=== PATIENT | female | born 1960 | race Native Hawaiian/Other Pacific Islander ===

== ENCOUNTER 2025-06-09 17:35 | Emergency (ER) | payer OTHER ==
[~2025-06-09] VITALS: Ht 157.5 cm; Wt 47.6 kg
--- NOTE | 2025-06-09 17:44 | ERN ---
ED Note History of Present Illness Stated Complaint: RIGHT KNEE PAIN Chief Complaint: Knee Injury/Swelling Time Seen by MD: 17:37 Dictation: PATIENT IS A 64-YEAR-OLD FEMALE HERE WITH COMPLAINTS OF CHRONIC RIGHT KNEE PAIN WITH POPPING TO THE POSTERIOR KNEE FOR MORE THAN A MONTH. SHE STATES SHE HAS BEEN USING A BRACE WITH A AMBULATION AND THAT IT HELPS HOWEVER IT HAS GOTTEN TO THE POINT NOW WHERE SHE IS HAVING TROUBLE WITH AMBULATION DUE TO PAIN. [facility] NE[facility]OVASCULAR AND CMS INTACT TO RIGHT LEG. LAXITY NOTED TO KNEE WITH THE EXAM. Allergies: Coded Allergies: Penicillins (Unverified Allergy, Unknown, 06/09/25) amoxicillin (Unverified Allergy, Unknown, 06/09/25) azithromycin (Unverified Allergy, Unknown, 06/09/25) clavulanic acid (Unverified Allergy, Unknown, 06/09/25) Past Medical History History: Not Applicable RN Note Reviewed/Agreed w/PFSH: Yes Review of System Dictation CONSTITUTIONAL: NEGATIVE EXCEPT FOR HPI HEAD/FACE: NEGATIVE EXCEPT FOR HPI EENT: NEGATIVE EXCEPT FOR HPI RESPIRATORY: NEGATIVE EXCEPT FOR HPI GASTROINTESTINAL/ABDOMINAL: NEGATIVE EXCEPT FOR HPI GENITOURINARY: NEGATIVE EXCEPT FOR HPI MUSCULOSKELETAL: NEGATIVE EXCEPT FOR HPI RIGHT KNEE PAIN INTEGUMENTARY: NEGATIVE EXCEPT FOR HPI NEUROLOGICAL/PSYCH: NEGATIVE EXCEPT FOR HPI HEMATOLOGIC/LYMPHATIC: NEGATIVE EXCEPT FOR HPI ALL SYSTEMS NEGATIVE, EXCEPT NOTED ABOVE. 13 POINT REVIEW OF SYSTEMS ASSESSED AND ALL NEGATIVE EXCEPT FOR ABOVE. Initial Vital Sign VS Vital Signs Date Time Temp Pulse Resp B/P (MAP) Pulse Ox O2 Delivery O2 Flow Rate FiO2 06/09/25 17:36 98.2 64 17 138/83 100 Room Air 0 06/09/25 17:45 21 Physical Exam Dictation VITAL SIGNS REVIEWED GENERAL APPEARANCE: ALERT, ORIENTED X 3, MODERATE ACUTE DISTRESS, WELL DEVELOPED, NOURISHED. HEAD AND FACE: NON-TRAUMATIC. EYES: PERRL, PINK CONJUNCTIVAS, EYELID NO TRAUMA, ANTERIOR CHAMBER WITH ARCUS SENILIS. EARS: PINNAS INTACT AND NO SIGNS OF TRAUMA OR ERYTHEMA EAR CANALS CLEAR AND NO DISCHARGE TM NO ERYTHEMA NOSE: NO DISCHARGE, NO BLEEDING. OROPHARYNX: MOUTH NORMAL, TONGUE PINK, PHARYNX CLEAR,NO ERYTHEMA, TONSILS NO EXUDATES, NO ABSCESSES NOTED, MUCOUS MEMBRANE MOIST NECK: SUPPLE, NON-TENDER, NO THYROMEGALY, NO MASSES, NO JVD, NO BRUITS BREAST:DEFERRED CHEST:NO TENDERNESS, NO CREPITUS, NO PARADOXICAL MOVEMENT, NO RETRACTIONS LUNGS:CLEAR, WELL-VENTILATED, SYMMETRIC, NO RALES, NO WHEEZING, NO RHONCHI, NO STRIDOR, GOOD BREATH SOUNDS BILATERALLY HEART: REGULAR RATE, REGULAR RHYTHM, NO MURMUR, NO GALLOPS VASCULAR: NO PERIPHERAL EDEMA, ABDOMEN: SOFT, POSITIVE BOWEL SOUNDS, NONDISTENDED, NO GUARDING, NONTENDER, NO REBOUND, NO MASSES NO HEPATOMEGALY, NO SPLENOMEGALY, NO WILSON'S SIGN, NO HERNIAS. RECTAL: DEFERRED GENITAL: DEFERRED NEUROLOGICAL: NORMAL SPEECH, MOTOR FUNCTION INTACT, SENSORY FUNCTION INTACT MUSCULOSKELETAL: NECK NONTENDER, FULL RANGE OF MOTION, BACK NONTENDER, FULL RANGE OF MOTION, EXTREMITIES: DIFFUSE KNEE PAIN POSTERIORLY. LAXITY NOTED WITH ZITCH-DL-GKHSLE AND DRAWER TEST. SKIN: COLOR PINK, DRY, NO TURGOR, NO RASH, NO LACERATIONS, NO ABRASIONS, NO C ONTUSIONS. LYMPHATIC: DEFERRED Results (Laboratory/Radiology) Laboratory/Radiology RIGHT KNEE X-RAY DEMONSTRATES DEGENERATIVE CHANGES ONLY. Labs Reviewed?: Yes ED Course ED Course Orders Procedure Category Date Status Time Knee 3vws Rt RAD 06/09/25 Resulted 17:41 Ketorolac 60mg/2ml PHA 06/09/25 Complete (Toradol 60mg/2ml) 18:00 Knee Immobilizer [place] 06/09/25 Complete 17:41 Crutches W/Training CPOE 06/09/25 Transmitted (Er) 17:41 Current Medications Medications (Trade) Dose Ordered Sig/Virgilio Route PRN Reason Start Time Stop Time Status Last Admin Dose Admin Ketorolac Tromethamine (toRADol 60MG/ 2ML) 60 mg ONCE ONCE IM 06/09/25 18:00 06/09/25 18:01 DC 06/09/25 17:52 Vital Signs Date Time Temp Pulse Resp B/P (MAP) Pulse Ox O2 Delivery O2 Flow Rate FiO2 06/09/25 18:48 98.2 64 17 138/83 100 Room Air* 0 21 06/09/25 17:45 98.2 64 17 138/83 100 Room Air* 0 21 06/09/25 17:36 98.2 64 17 138/83 100 Room Air 0 1900/PATIENT STATES PAIN IS 2/10 AFTER TORADOL. SHE HAS A AN IMMOBILIZER IN PL [place] PLACED BY RN, [facility] CMS INTACT POST PLACEMENT. SPOKE WITH DR. VALERIE MATHIS REGARDING KNEE DERANGEMENT AND SHE WILL SEE PATIENT HER OFFICE TUESDAY MORNING PATIENT AWARE TO CALL FOR AN APPOINTMENT TOMORROW Medical Decision Making MDM MEDICAL DECISION-MAKING BASED ON X-RAY TO RULE OUT PATELLAR DISLOCATION VERSUS FRACTURE. X-RAY NEGATIVE EXCEPT DEGENERATIVE CHANGES IMMOBILIZER PLACED FOR INTERNAL KNEE DERANGEMENT PATIENT HAS A APPOINTMENT WITH DR. VALERIE MATHIS ON TUESDAY SHE HAS KETOROLAC AND IBUPROFEN AT HOME. SHE HAS A WALKER AND REFUSED CRUTCHES DX & DISP Disposition: Discharge Departure Impression: Primary Impression: Derangement of right knee Condition: Stable Additional Instructions: FOLLOW-UP WITH PRIMARY CARE PROVIDER IN 1 TO 2 DAYS. TAKE MEDICATIONS DIRECTED HERE IN THE EMERGENCY ROOM. OKAY TO CONTINUE HOME MEDICATIONS UNLESS OTHERWISE DISCUSSED DURING YOUR VISIT IN THE EMERGENCY ROOM TODAY. RETURN TO YOUR NEAREST EMERGENCY ROOM IF SYMPTOMS WORSEN OR IF THERE IS NO IMPROVEMENT. CALL 911 IF YOU NEED IMMEDIATE ASSISTANCE. TAKE TYLENOL OR MOTRIN ZVAL-[id number] NEEDED AND IF NO CONTRAINDICATIONS ARE PRESENT. INCREASE ORAL HYDRATION. A WOUND CULTURE OR URINE CULTURE WAS ORDERED HERE IN THE EMERGENCY ROOM DEPARTMENT PLEASE FOLLOW-UP WITH PRIMARY CARE PROVIDER AND ADVISE THEM TO GET REPEAT PORTS FROM OUR FACILITY. IF YOU HAD ANY OFELIA WRAP/SPLINTS THAT WERE APPLIED HERE, PLEASE DO NOT REMOVE THEM UNTIL YOU SEE YOUR PRIMARY CARE OR SPECIALTY. KNEE IMMOBILIZER/WALKER AND NO WEIGHT-BEARING RIGHT KNEE UNTIL CLEARED BY ORTHOPEDIC SURGEON. CALL HER OFFICE FOR AN APPOINTMENT TOMORROW. Referrals: VALERIE MATHIS MD Time of Disposition: 18:59 I have reviewed the case, and I agree with, Diagnosis and Plan HARJEET FERRO Jun 09, 2025 17:44 SELMA GONSALES DO Jun 09, 2025 19:26
[2025-06-09 18:48] VITALS: BP 138/83; PULSE 64; RESP 17; TEMP 98.2; O2SAT 100
--- NOTE | 2025-06-09 19:00 | HMCIMG ---
EXAM: CR right Knee, 4 View. CLINICAL HISTORY: POSTERIOR KNEE PAIN WITH POPPING X1 MONTH COMPARISON: None provided. FINDINGS: BONES: No acute fracture or aggressive appearing osseous lesion. JOINTS: Mild tricompartmental right knee joint osteoarthritis. There is no joint effusion appreciated. SOFT TISSUES: The soft tissues are unremarkable. IMPRESSION: 1. No acute findings. 2. Mild tricompartmental right knee osteoarthritis. /[place]
== END 2025-06-09 19:01 | disposition home or self-care (01) ==
LOC: EDH 17:35
DX: M23.91 Unspecified internal derangement of right knee (principal); Z88.0 Allergy status to penicillin; Z88.1 Allergy status to other antibiotic agents
CPT/HCPCS: 99283; 29505; 73562; 96372; J1885